=== PATIENT | female | born 1995 | race Hispanic/Latino ===

== ENCOUNTER 2017-10-13 07:52 | Emergency (ER) | payer OTHER ==
[2017-10-13] MEDS ORDERED: LOPERAMIDE HCL 2 MG CAP PO ONE (08:23)
[2017-10-13] MEDS ORDERED: ONDANSETRON ODT 4 MG TAB ONE (08:23)
== END 2017-10-13 08:27 | disposition home or self-care (01) ==
LOC: EDH 07:52
DX: K52.9 Noninfective gastroenteritis and colitis, unspecified (principal)

== ENCOUNTER 2018-08-19 00:20 | Emergency (ER) | payer OTHER | END 2018-08-19 01:09 | disposition left against medical advice (07) | LOC: EDH 00:20 | DX: R51 Headache (principal); Z53.21 Procedure and treatment not carried out due to patient leaving prior to being seen by health care provider ==

== ENCOUNTER 2018-08-19 20:06 | Emergency (ER) | payer BC, OTHER ==
[2018-08-19 20:51] LABS: APPEARANCE,URINE Cloudy (CLEAR); BILIRUBIN,URINE Negative (NEGATIVE); COLOR,URINE Yellow (YELLOW); GLUCOSE, URINE (UA) Negative (NEGATIVE); KETONES,URINE Negative (NEGATIVE); LEUKOCYTE ESTERASE ,URINE Small (NEGATIVE); NITRATE,URINE Negative (NEGATIVE); OCCULT BLOOD,URINE Negative (NEGATIVE); PH,URINE 6.5 (5.0-8.0); PROTEIN,URINE Negative (NEGATIVE)
[2018-08-19 20:55] LABS: HCG,QUAL RESULT NEGATIVE (NEGATIVE)
[2018-08-19 20:57] LABS: BASOPHILS % (AUTO) 0.4 % (0.0-5.0); EOSINOPHILS % (AUTO) 2.9 % (0.0-8.0); HEMATOCRIT 37.9 % (36-48); LYMPHOCYTES % (AUTO) 29.1 % (21.0-51.0); MEAN CORPUSCULAR HEMOGLOBIN 26.3 pg (27.0-33.0); MEAN CORPUSCULAR HGB CONC 33.6 g/dL (32.0-36.0); MEAN CORPUSCULAR VOLUME 78.5 fL (80-100); MONOCYTES % (AUTO) 5.1 % (3.0-13.0); NEUTROPHILS % (AUTO) 62.5 % (40.0-77.0); PLATELET COUNT (AUTO) 331 K/uL (130-400); RED BLOOD CELL COUNT(AUTO) 4.83 MIL/uL (4.00-5.50); WHITE BLOOD COUNT (AUTO) 11.4 K/uL (4.8-10.8)
[2018-08-19 21:02] LABS: BACTERIA,URINE Few /HPF (None Seen); RBC,URINE None Seen /HPF (0-1)
[2018-08-19 21:03] LABS: AMORPHOUS SEDIMENT,UR Moderate /LPF (None Seen)
[2018-08-19 21:05] LABS: CREATININE 0.6 mg/dL (0.5-1.5); POTASSIUM 3.7 mmol/L (3.5-5.1)
[2018-08-19 21:18] LABS: ALBUMIN 3.7 g/dL (3.5-5.0); BILIRUBIN,DIRECT 0.1 mg/dL (0.0-0.3); BILIRUBIN,TOTAL 0.2 mg/dL (0.2-1.0); THYROID STIMULATING HORMONE 2.87 uIU/mL (0.36-3.74); TOTAL PROTEIN, SERUM 7.5 g/dL (6.0-8.3)
== END 2018-08-19 21:44 | disposition home or self-care (01) ==
LOC: EDH 20:06
DX: N39.0 Urinary tract infection, site not specified (principal)
CPT/HCPCS: 36415; 80048; 80076; 81001; 81025; 83690; 84443; 85025

== ENCOUNTER 2018-11-07 23:11 | Emergency (ER) | payer OTHER ==
[2018-11-08] MEDS ORDERED: ACETAMINOPHEN EXTRA STRENGTH 500 MG TABLET ONE (00:03)
[2018-11-08] MEDS ORDERED: ONDANSETRON ODT 4 MG TAB ONE (00:04)
== END 2018-11-08 01:26 | disposition home or self-care (01) ==
LOC: EDH 23:11
DX: S09.90XA Unspecified injury of head, initial encounter (principal); W18.2XXA Fall in (into) shower or empty bathtub, initial encounter; Y93.89 Activity, other specified; Y92.89 Other specified places as the place of occurrence of the external cause; Y99.8 Other external cause status

== ENCOUNTER 2018-12-01 14:31 | Emergency (ER) | payer SELFPAY | END 2018-12-01 16:25 | disposition home or self-care (01) | LOC: EDH 14:31 | DX: S43.491A Other sprain of right shoulder joint, initial encounter (principal); X58.XXXA Exposure to other specified factors, initial encounter; Y93.89 Activity, other specified; Y92.89 Other specified places as the place of occurrence of the external cause; Y99.8 Other external cause status | CPT/HCPCS: 73030; 81025 ==

== ENCOUNTER 2019-04-21 11:15 | Emergency (ER) | payer OTHER | END 2019-04-21 12:44 | disposition home or self-care (01) | LOC: EDH 11:15 | DX: H00.012 Hordeolum externum right lower eyelid (principal) | CPT/HCPCS: 99281 ==